=== PATIENT | male | born 1955 | race Caucasian/White ===

== ENCOUNTER 2019-05-19 12:57 | Day surgery (SDC) | payer BC, OTHER ==
[2019-05-17 11:33] VITALS: BMI 36.0
[~2019-05-19 12:57] MED LIST: SODIUM CHLORIDE 0.9% 1,000 ML IV SCH
[2019-05-19 13:33] VITALS: BP 123/75; RESP 18
[2019-05-19] MEDS ORDERED: IV FLUID CONTINUATION 500 ML IV ONE (13:34)
[2019-05-19] MEDS ORDERED: MIDAZOLAM 2 MG/2 ML VIAL IV ONE (14:51)
[2019-05-19] MEDS ORDERED: LIDOCAINE 1% INJ 10MG/ML (20 ML MDV) SQ ONE (14:52)
--- NOTE | 2019-05-19 15:19 | P.PCN ---
Preoperative Diagnosis: Loop monitor implant Primary physicians: Dr. Foster Bulk Station Agent: Dr. Linder Operators: Dr. Linder and Mary Ge PA-C Indication: Atrial fibrillation, NSVT, bradycardia Patient was brought to the EP lab in a fasting state. Written informed consent was obtained prior to the procedure. The left pectoral area was prepped and draped per protocol. Intravenous antibiotic was administered preoperatively. A subcutaneous Loop monitor was implanted successfully and the wound was closed per protocol. The device was programmed to detect significant mariluz- arrhythmic and tachy-arrhythmic events, per protocol. Device and programming details: Programmed A. fib protocol Patient underwent EP procedure under conscious sedation/moderate sedation under Dr. Linder's supervision, monitoring of the level of consciousness and physiologic parameters including but not limited to vital signs and oxygenation. Patient tolerated the procedure well without any acute complications. Start time: 1450 Stop time: 1510
--- NOTE | 2019-05-19 15:21 | P.PRLE ---
RE: Jaya Martinez Dear Imad Mr. Woods underwent implantation of loop monitor for management of atrial fibrillation and his palpitations. He has had short bursts of nonsustained ventricular tachycardia I will keep you posted on any new developments/plans Thank you for entrusting me with the care of the patient Warm regards Sincerely Ector Linder
== END 2019-05-19 15:52 | disposition home or self-care (01) ==
LOC: CATHEP 12:57
PROVIDERS: ATTEND Internal Medicine Clinical Cardiac Electrophysiology
DX: I48.0 Paroxysmal atrial fibrillation (principal); R00.1 Bradycardia, unspecified; R00.2 Palpitations; I47.1 Supraventricular tachycardia; I10 Essential (primary) hypertension; E78.5 Hyperlipidemia, unspecified; E66.9 Obesity, unspecified; Z68.36 Body mass index [BMI] 36.0-36.9, adult; G47.33 Obstructive sleep apnea (adult) (pediatric); Z99.89 Dependence on other enabling machines and devices; Z72.0 Tobacco use; Z82.49 Family history of ischemic heart disease and other diseases of the circulatory system; Z79.01 Long term (current) use of anticoagulants; Z79.82 Long term (current) use of aspirin; Z79.899 Other long term (current) drug therapy
CPT/HCPCS: 33285; C1764; J2250; J0690; J2001

== ENCOUNTER 2020-05-07 10:40 | Day surgery (SDC) | payer OTHER ==
[2020-05-02 13:59] VITALS: BMI 37.7
[~2020-05-07 10:40] MED LIST changes: +HYDROmorphone 0.5 MG/0.5 ML SYRINGE IVP PRN; +LACTATED RINGERS 1,000 ML IV SCH; +MIDAZOLAM 2 MG/2 ML VIAL IV PRN; +ONDANSETRON 4 MG/2 ML VIAL IVP ONE; -SODIUM CHLORIDE 0.9% 1,000 ML IV SCH
[2020-05-07] MEDS: SODIUM CHLORIDE 0.9% 1,000 ML IV SCH ×2 (11:34→19:58)
[2020-05-07 11:48] LABS: Basophils # (A) 0.1 k/uL (0-0.2); Basophils % (A) 1 %; Eosinophils # (A) 0.2 k/uL (0-0.7); Eosinophils % (A) 2 %; HCT 47.4 % (39.0-53.0); HGB 15.5 gm/dL (13.0-17.5); Lymphocytes # (A) 2.4 k/uL (1.0-4.8); Lymphocytes % (A) 40 %; MCH 30.2 pg (25.0-35.0); MCHC 32.7 g/dL (31.0-37.0); MCV 92.2 fL (80.0-100.0); Mean Platelet Volume 7.3; Monocytes # (A) 0.4 k/uL (0-1.0); Monocytes % (A) 7 %; Neutrophils # (A) 2.9 k/uL (1.3-7.7); Neutrophils % (A) 47 %; Platelet Count 287 k/uL (150-450); RBC 5.13 m/uL (4.30-5.90); RDW 12.7 % (11.5-15.5); WBC 6.1 k/uL (3.8-10.6)
[2020-05-07 11:57] LABS: African American GFR (CKD) >90 (>60 ml/min/1.73 sqM); Anion Gap 7 mmol/L; Blood Urea Nitrogen 20 mg/dL (9-20); Calcium 9.1 mg/dL (8.4-10.2); Carbon Dioxide 24 mmol/L (22-30); Chloride 108 mmol/L (98-107); Glucose 103 mg/dL (74-99); Non-African American GFR(CKD) >90 (>60 ml/min/1.73 sqM); Potassium 4.3 mmol/L (3.5-5.1); Sodium 139 mmol/L (137-145)
[2020-05-07] MEDS ORDERED: PROTAMINE SULFATE 10 MG/ML 5 ML VIAL IV ONE ×3 (14:04→16:37)
[2020-05-07] MEDS ORDERED: LIDOCAINE 1% INJ 10MG/ML (20 ML MDV) ONE ×2 (14:04→14:28)
[2020-05-07] MEDS ORDERED: fentaNYL (PF) 50 MCG/ML 2 ML AMP ONE (14:04)
[2020-05-07] MEDS ORDERED: PHENYLEPHRINE-0.9% NACL SYG 1 MG/10 ML SYRINGE ONE (14:04)
[2020-05-07] MEDS ORDERED: PROPOFOL 10 MG/ML 20 ML VIAL IV ONE (14:04)
[2020-05-07] MEDS ORDERED: HEPARIN SODIUM,PORCINE 10,000 UNIT/ML 1 ML VIAL ONE (14:04)
[2020-05-07] MEDS ORDERED: ISOPROTERENOL 250 MCG/1.25 ML SYR IV ONE (14:04)
[2020-05-07] MEDS ORDERED: SUCCINYLCHOLINE CHLORIDE 100 MG/5 ML SYR IV ONE (14:04)
[2020-05-07] MEDS ORDERED: MIDAZOLAM 2 MG/2 ML VIAL ONE (14:04)
[2020-05-07] MEDS ORDERED: LIDOCAINE 1% INJ 10MG/ML (20 ML MDV) SQ ONE (14:48)
[2020-05-07] MEDS ORDERED: HEPARIN SOD,PORK IN 0.45% NACL 25,000 UNIT in 0.45% NACL 1 250ML.BAG IV ONE (15:01)
[2020-05-07] MEDS ORDERED: ACETAMINOPHEN IV (For NPO) 1,000 MG in EMPTY BAG 1 BAG IVPB ONE (16:59)
[2020-05-07] MEDS ORDERED: ACETAMINOPHEN TAB 325 MG TAB PO PRN (16:59)
--- NOTE | 2020-05-07 17:32 | P.EPPROC ---
- EP Procedure Note Electrophysiology Procedure Note: Diagnosis Atrial fibrillation, symptomatic, refractory to therapy Paroxysmal with RVR Difficult rate control Result No left atrial appendage mass seen on intracardiac echo Successful pulmonary vein isolation of all veins using cryo-ablation Complete entrance block in all 4 veins confirmed No evidence for phrenic nerve injury Left bundle branch block aberrancy during atrial pacing Antegrade slow pathway conduction at 250 ms, no inducible AV liban reentry Esophageal deflection YES Electrical cardioversion with a synchronized shock across the chest NO Procedure details Patient was brought to the EP lab in a fasting state. Written informed consent was obtained prior to the procedure. Procedure performed under general anesthesia After initial muscle relaxant use, muscle relaxants were not given thereafter in order to assess phrenic nerve during procedure. Patient prepped and draped as per protocol Full cryo-set up with standard preparation of the cryoablation tools done. Femoral Venous access obtained on the right and left groins Venous and arterial Sheaths placed. Diagnostic catheters for the high right atrium, phrenic nerve stimulation and pacing, His bundle, RV and coronary sinus placed Intracardiac echo catheter placed. Long sheath placed in the right atrium Left and right transseptal catheterization performed under intracardiac echo guidance. Intravenous heparin with aCT above 300 Later, catheter positioning and balloon positioning in the left atrium, under intracardiac echo guidance Diagnostic EP study with Drug infusion with Isuprel Coronary sinus pacing and recording Baseline measurements Sinus cycle length 831 ms, ND interval 180 ms, QRS 103 ms and QT interval 395 ms AH 78 ms and HV 43 ms Atrial pacing performed from the high right atrium and the coronary sinus RV pacing VA Wenckebach block 590 ms Sinus recovery times at pacing cycle length of 600 ms was 1042 ms AV node Wenckebach block less than 200 ms on high-dose Isuprel Left bundle branch block aberrancy noted Slow pathway conduction on Isuprel at 250 ms Burst stimulation from the high right atrium from 400 ms down to 200 ms on high- dose Isuprel Burst stimulation from the coronary sinus from 370 ms down to 200 ms Transseptal catheterization performed RA pressure 13/5/9 LA pressure 18/5/11 Transseptal catheterization performed with standard sheath. The cryoablation sheath was then placed with an over the wire exchange without any acute complications. All 4 pulmonary veins were isolated in the following sequence: Left superior followed by left inferior followed by right superior followed by right inferior The cryo-ablation balloon was placed at the os of each vein 1.5 mL of IV dye was injected to confirm an occluded vein Goal during cryoablation was to achieve complete occlusion of the pulmonary vein, achieve -30 degrees C at 30 seconds and achieve -40 degrees C at 60 seconds and a time to effect of less than 60-90 seconds, . If not the balloon was repositioned to obtain this result After completion of Cryoblation with durations from 180-240 seconds, entrance block was confirmed with the Attain circular catheter in a roving fashion around the antrum of the pulmonary veins Phrenic nerve pacing was performed from the SVC, right innominate vein area and diaphragm voltage was monitored. Diaphragmatic contractions were also monitored manually for strength of contraction. Parameter goals for each cryo freeze Complete occlusion of the appropriate vein -30 degrees C by 30 seconds -40 degrees C by 60 seconds Minimum between minus 40-55 degrees C Thaw time greater than 10 seconds Balloon visualized by intracardiac echo The esophagus was intubated. Esophageal Temperature monitoring with a CIRCA catheter formed. Esophageal deflection for hypothermia of the esophagus below 30 degrees C Left superior pulmonary vein Complete isolation, entrance block Left inferior pulmonary vein Complete isolation, entrance block Right superior pulmonary vein, during phrenic nerve pacing Complete isolation, entrance block Right inferior pulmonary vein, during phrenic nerve pacing Complete isolation, entrance block At the end of the procedure the Achieve catheter was once again used to check for entrance block Phrenic nerve stimulation was performed to confirm diaphragmatic stimulation the end of the procedure Cine fluoroscopy was performed at the very end of the procedure to confirm movement of both diaphragms with inspiration and expiration At the end of the procedure the patient was extubated Heparin was reversed Venous sheaths were removed and hemostasis assured Procedures performed (PVI - CRYO Ablation) Diagnostic EP study CS pacing and recording Left and right transseptal catheterization Catheter the mapping of the tachycardia (NOT 3D mapping) Intracardiac echocardiography Pulmonary vein isolation with transseptal and comprehensive EPS, 38941 Drug Infusion +[id number]
[2020-05-07] MEDS: HYDROcodone/APAP 5-325MG 1 EACH TAB PO PRN ×2 (18:35→22:40)
[2020-05-07] MEDS ORDERED: HYDROmorphone 0.5 MG/0.5 ML SYRINGE IVP PRN (19:04)
[2020-05-07] MEDS: ASPIRIN 81 MG PO SCH (19:57)
[2020-05-07] MEDS: METOPROLOL TARTRATE 25 MG TAB PO SCH (19:57)
[2020-05-07] MEDS: APIXABAN 5 MG TAB PO SCH (19:58)
[2020-05-07] MEDS ORDERED: ATORVASTATIN 20 MG TAB PO SCH (21:00)
[2020-05-07] MEDS ORDERED: lisinopriL 20 MG TAB PO SCH (21:00)
[2020-05-08] MEDS: HYDROcodone/APAP 5-325MG 1 EACH TAB PO PRN (09:26)
[2020-05-08] MEDS: ASPIRIN 81 MG PO SCH (09:47)
[2020-05-08] MEDS: METOPROLOL TARTRATE 25 MG TAB PO SCH (09:47)
[2020-05-08] MEDS: APIXABAN 5 MG TAB PO SCH (09:47)
--- NOTE | 2020-05-08 11:21 | P.DS ---
Providers Attending physician: Ector Linder Primary care physician: [facility] Course: Patient is doing well. He denies any chest discomfort. Very mild sore throat no dizziness lightheadedness. History is back was hurting the today he feels a lot better There is no shortness of breath he is not dizzy or lightheaded and rhythm is normal The groin has healed well. Once of healed well no tenderness no swelling sutures were removed On examination blood pressure 138/82 mmHg pulse rate in the 70s afebrile 98.6F Breath sounds are clear no rhonchi no crackles Normal heart sounds normal S1 normal S2 no murmurs or gallops no rub Extended is warm no edema No swelling in either groin no tenderness Impression Paroxysmal atrial fibrillation RVR Successful cryoablation of the pulmonary veins No inducible atrial fibrillation thereafter despite high-dose Isuprel and for stimulation from multiple sites in the atria and coronary sinus Hypertension Dyslipidemia Suggest Continue medications for hypertension Continue dyslipidemia management Continue ELIQUIS Reduce metoprolol to 25 mg twice daily Follow-up in the office in 1-2 weeks Plan - Discharge Summary Discharge Rx Participant: No New Discharge Prescriptions: New Metoprolol Tartrate [Lopressor] 25 mg PO BID #180 tablet Continue ALPRAZolam [Xanax] 0.25 mg PO BID PRN PRN Reason: Anxiety Apixaban [Eliquis] 5 mg PO BID Simvastatin 40 mg PO HS Benazepril HCl 40 mg PO HS Changed Aspirin [Adult Low Dose Aspirin EC] 81 mg PO DAILY #0 Discontinued Metoprolol Tartrate 25 mg PO QID Discharge Medication List ALPRAZolam [Xanax] 0.25 mg PO BID PRN 05/17/19 [History] Apixaban [Eliquis] 5 mg PO BID 05/17/19 [History] Benazepril HCl 40 mg PO HS 05/17/19 [History] Simvastatin 40 mg PO HS 05/17/19 [History] Metoprolol Tartrate [Lopressor] 25 mg PO BID #180 tablet 05/07/20 [Rx] Aspirin [Adult Low Dose Aspirin EC] 81 mg PO DAILY #0 05/08/20 [Rx] Follow up Appointment(s)/Referral(s): Ector Linder MD [STAFF PHYSICIAN] - 05/15/20 10:45 am Patient Instructions/Handouts: Cardiac Ablation (DC) Activity/Diet/Wound Care/Special Instructions: Post EP study - Ablation instructions 1. Keep access sites dry for 2 days. 2. No heavy lifting or straining for 2 days. 3. Avoid bending the hips repeatedly for 2 days. 4. You may go up and down stairs slowly Call if the following is noted 1. Bleeding, increasing swelling or pain at the access sites. 2. Increasing chest discomfort, especially upon taking a deep breath. 3. Increasing shortness of breath, at rest or with exertion. 4. Undue cough / phlegm 5. Difficulty or pain while swallowing. 6. Pain or change in color in the extremities. 7. Fever, chills, rigors. 8. Increasing headache or neurologic symptoms. 9. Dizziness, fainting, palpitations Reduce metoprolol to 25 mg twice daily Continue ELIQUIS and other cardiac medications Follow-up with Dr. Linder in 2 weeks Discharge Disposition: HOME SELF-CARE
[2020-05-08 11:45] VITALS: BP 124/75; PULSE 66; RESP 20; TEMP 98.3
--- NOTE | 2020-05-08 14:14 | P.CONS ---
History of Present Illness - Reason for Consult Consult date: 05/08/20 Medical management - History of Present Illness HISTORY OF PRESENT ILLNESS This is a 65-year-old male patient of Dr. Blanco with past medical history of atrial fibrillation on long-term anticoagulation with eliquis, hypertension, hyperlipidemia, obstructive sleep apnea, remote history of tobacco use. Patient has been brought in the hospital in the care of Dr. Linder for electrocardioversion for atrial fibrillation symptomatic and refractory to therapy. Patient just procedure was successful and he has had no postop complications. Patient denies having any palpitations, chest pain, lightheadedness or dizziness. Patient is scheduled for discharge home today. REVIEW OF SYSTEMS Constitutional: No fever, no chills, no night sweats. No weight change. No weakness, fatigue or lethargy. No daytime sleepiness. EENT: No headache. No blurred vision or double vision, no loss of vision. No loss of Hearing, no ringing in the ears, no dizziness. No nasal drainage or congestion. No epistaxis. No sore throat. Lungs: No shortness of breath, cough, no sputum production. No wheezing. Cardiovascular: No chest pain, no lower extremity edema. No palpitations. No paroxysmal nocturnal dyspnea. No orthopnea. No lightheadedness or dizziness. No syncopal episodes. Abdominal: No abdominal pain. No nausea, vomiting. No diarrhea. No constipation. No bloody or tarry stools.. No loss of appetite. Genitourinary: No dysuria, increased frequency, urgency. No urinary retention. Musculoskeletal: No myalgias. No muscle weakness, no gait dysfunction, no frequent falls. No back pain. No neck pain. Integumentary: No wounds, no lesions. No rash or pruritus. No unusual bruising. No change in hair or nails. Neurologic: No aphasia. No facial droop. No change in mentation. No head injury. No headache. No paralysis. No paresthesia. Psychiatric: No depression. No anxiety. No mood swings. Endocrine: No abnormal blood sugars. No weight change. No excessive sweating or thirst. No cold intolerance. PHYSICAL EXAMINATION Gen: This is [ ] HEENT: Head is atraumatic, normocephalic. Pupils equal, round. Sclerae is anicte dandy. NECK: Supple. No JVD. No lymphadenopathy. No thyromegaly. LUNGS: Clear to auscultation. No wheezes or rhonchi. No intercostal retractions. HEART: Regular rate and rhythm. No murmur. ABDOMEN: Soft. Bowel sounds are present. No masses. No tenderness. EXTREMITIES: No pedal edema. No calf tenderness. NEUROLOGICAL: Patient is awake, alert and oriented x3. Cranial nerves 2 through 12 are grossly intact. ASSESSMENT AND PLAN 1. Chronic atrial fibrillation, symptomatic and refractory to therapy. Patient is status post electrocardioversion. Continue Lopressor 25 mg twice daily, eliquis 5 mg twice daily. 2. Hypertension. Continue benazepril 40 mg at bedtime, Lopressor 25 mg twice daily. 3. Hyperlipidemia. Continue simvastatin 40 mg at bedtime. 4. Obstructive sleep apnea. 5. Remote history of tobacco use. Discharge plan: home. Impression and plan of care have been directed as dictated by the signing physician. Tootie Arias nurse practitioner acting as scribe for signing physician. Past Medical History Past Medical History: Atrial Fibrillation, Hyperlipidemia, Hypertension, Sleep Apnea/CPAP/BIPAP Additional Past Medical History / Comment(s): see Dr Linder H&P History of Any Multi-Drug Resistant Organisms: None Reported Past Surgical History: Hernia Repair, Orthopedic Surgery Additional Past Surgical History / Comment(s): rt ankle, benign cyst rt index finger Past Anesthesia/Blood Transfusion Reactions: No Reported Reaction Additional Past Anesthesia/Blood Transfusion Reaction / Comm: states "very anxious" prior to procedures Smoking Status: Former smoker Medications and Allergies Home Medications Medication Instructions Recorded Confirmed Type ALPRAZolam [Xanax] 0.25 mg PO BID PRN 05/17/19 05/07/20 History Apixaban [Eliquis] 5 mg PO BID 05/17/19 05/07/20 History Benazepril HCl 40 mg PO HS 05/17/19 05/07/20 History Simvastatin 40 mg PO HS 05/17/19 05/07/20 History Metoprolol Tartrate [Lopressor] 25 mg PO BID #180 tablet 05/07/20 Rx Aspirin [Adult Low Dose Aspirin EC] 81 mg PO DAILY #0 05/08/20 05/07/20 Rx Allergies Allergy/AdvReac Type Severity Reaction Status Date / Time hair dye Allergy Swelling Uncoded 05/07/20 11:04 Physical Exam Vitals: Vital Signs Temp Pulse Pulse Pulse Resp BP BP 05/08/20 07:45 98.6 F 72 18 138/82 05/08/20 04:00 98.7 F 68 91 16 123/69 05/08/20 00:00 97.8 F 91 18 112/75 05/07/20 20:44 89 18 121/78 05/07/20 20:00 16 05/07/20 19:44 85 16 129/82 05/07/20 18:44 98.2 F 80 16 129/83 05/07/20 18:14 97.7 F 84 16 128/77 05/07/20 17:55 86 18 140/78 05/07/20 17:40 86 18 129/75 05/07/20 17:25 97 F L 91 16 118/73 05/07/20 11:33 98.1 F 68 18 141/72 Pulse Ox 05/08/20 07:45 95 05/08/20 04:00 97 05/08/20 00:00 93 L 05/07/20 20:44 05/07/20 20:00 05/07/20 19:44 94 L 05/07/20 18:44 94 L 05/07/20 18:14 96 05/07/20 17:55 96 05/07/20 17:40 99 05/07/20 17:25 96 05/07/20 11:33 96 Intake and Output 05/07/20 05/08/20 05/08/20 22:59 06:59 14:59 Intake Total 922 Output Total 320 Balance 922 -320 Intake: IV 82 Invasive Line 1 20 Invasive Line 2 20 Oral 840 Output: Urine 320 Other: Voiding Method Urinal # Voids 1 Weight 109.316 kg 105.6 kg Results CBC & Chem 7: 05/07/20 11:05 05/07/20 11:05 Labs: Abnormal Lab Results - Last 24 Hours (Table) 05/07/20 Range/Units 11:05 Chloride 108 H (98-107) mmol/L Glucose 103 H (74-99) mg/dL
== END 2020-05-08 12:53 | disposition home or self-care (01) ==
LOC: CATHEP 10:40 → 3SCARD 16:43 → CATHEP 05-08 12:53
PROVIDERS: ATTEND Internal Medicine Clinical Cardiac Electrophysiology
DX: I48.0 Paroxysmal atrial fibrillation (principal); I44.7 Left bundle-branch block, unspecified; I49.5 Sick sinus syndrome; I11.9 Hypertensive heart disease without heart failure; E78.5 Hyperlipidemia, unspecified; G47.33 Obstructive sleep apnea (adult) (pediatric); J02.9 Acute pharyngitis, unspecified; Z79.899 Other long term (current) drug therapy; Z79.82 Long term (current) use of aspirin; Z79.01 Long term (current) use of anticoagulants; Z99.89 Dependence on other enabling machines and devices; Z87.891 Personal history of nicotine dependence; Z87.19 Personal history of other diseases of the digestive system; Z98.890 Other specified postprocedural states; Z87.2 Personal history of diseases of the skin and subcutaneous tissue; Z87.898 Personal history of other specified conditions; Z91.09 Other allergy status, other than to drugs and biological substances; Z82.49 Family history of ischemic heart disease and other diseases of the circulatory system
CPT/HCPCS: 85347; 93623; 93662; 93609; 93656; 80048; 85025; C1769 ×4; C1894 ×2; C1893; C1733; C1766; C1730; J2250; J2720; J1644 ×2; J2001; J3010; J0131; J2370; J0330; J2704; J1170

== ENCOUNTER 2023-01-08 10:24 | Day surgery (SDC) | payer MEDICARE, OTHER ==
[2023-01-06 11:25] VITALS: BMI 37.3
[~2023-01-08 10:24] MED LIST changes: -HYDROmorphone 0.5 MG/0.5 ML SYRINGE IVP PRN; -LACTATED RINGERS 1,000 ML IV SCH; -MIDAZOLAM 2 MG/2 ML VIAL IV PRN; -ONDANSETRON 4 MG/2 ML VIAL IVP ONE; +SODIUM CHLORIDE 0.9% 1,000 ML IV SCH
[2023-01-08] MEDS ORDERED: SODIUM CHLORIDE 0.9% 500 ML 500 ML IV ONE (10:49)
[2023-01-08 10:58] VITALS: RESP 16; TEMP 98.1
[2023-01-08] MEDS ORDERED: LIDOCAINE 1% INJ 10MG/ML (20 ML MDV) ONE (11:33)
[2023-01-08] MEDS ORDERED: LIDOCAINE 1% INJ 10MG/ML (20 ML MDV) SQ ONE (11:51)
[2023-01-08] MEDS ORDERED: MIDAZOLAM 2 MG/2 ML VIAL IV ONE (11:51)
[2023-01-08] MEDS ORDERED: fentaNYL (PF) 50 MCG/ML 2 ML AMP ONE (11:57)
[2023-01-08] MEDS ORDERED: fentaNYL (PF) 50 MCG/ML 2 ML AMP IV ONE (11:58)
[2023-01-08 13:15] VITALS: BP 138/69; PULSE 69
--- NOTE | 2023-01-08 17:45 | P.EPPROC ---
- EP Procedure Note Electrophysiology Procedure Note: Procedure: Loop explant under sedation and local anesthesia. Diagnosis: Loop monitor at [facility] Patient was brought to the EP lab in a fasting state. Written informed consent was obtained prior to the procedure. The subcutaneous device was successfully explanted under local anesthesia. Preoperative antibiotics were administered. The wound was closed in layers and dressed per protocol. Result: Successful loop monitor explantation. Patient underwent EP procedure under conscious sedation/moderate sedation, monitoring of the level of consciousness and physiologic parameters including but not limited to vital signs and oxygenation. Patient tolerated the procedure well without any acute complications. Start time: 1150 Stop time: 1200
== END 2023-01-08 13:10 | disposition home or self-care (01) ==
LOC: CATHEP 10:24
PROVIDERS: ATTEND Internal Medicine Clinical Cardiac Electrophysiology
DX: T82.118A Breakdown (mechanical) of other cardiac electronic device, initial encounter (principal); I48.0 Paroxysmal atrial fibrillation; I10 Essential (primary) hypertension; E66.9 Obesity, unspecified; E78.5 Hyperlipidemia, unspecified; Z82.49 Family history of ischemic heart disease and other diseases of the circulatory system; F17.210 Nicotine dependence, cigarettes, uncomplicated; Z68.1 Body mass index [BMI] 19.9 or less, adult; Z79.01 Long term (current) use of anticoagulants; Z79.899 Other long term (current) drug therapy
CPT/HCPCS: 33286; J2250; J0690; J2001; J3010

== ENCOUNTER → 2023-11-25 | Outpatient (CLI) | payer MEDICARE ==
[2023-11-25 12:27] LABS: African American GFR (CKD) >90 (>60 ml/min/1.73 sqM); Blood Urea Nitrogen 13 mg/dL (9-20); Non-African American GFR(CKD) >90 (>60 ml/min/1.73 sqM)
--- NOTE | 2023-11-25 14:39 | CT ---
EXAMINATION TYPE: CT abdomen pelvis w con DATE OF EXAM: 11/25/2023 COMPARISON: None HISTORY: Umbilical hernia without obstruction or gangrene. CT DLP: 1566 mGycm CONTRAST: CT scan of the abdomen and pelvis is performed with Oral Contrast and with IV Contrast, patient injec jaime with 100 mL of Isovue 300. FINDINGS: LUNG BASES-: No visible nodule. No infiltrate. LIVER/GB: Noncalcified cholelithiasis. No space occupying hepatic lesion. Biliary tree is of normal c aliber. PANCREAS: No inflammation. No distinct mass. SPLEEN: No splenic enlargement. No lesion seen. ADRENALS: No nodule. No thickening. KIDNEYS/BLADDER: No hydronephrosis. No nephrolithiasis. No distinct renal mass. Urinary bladder g rossly unremarkable. BOWEL: Normal appendix. Normal bowel caliber. No inflammation. GENITAL ORGANS: Mildly enlarged prostate gland. LYMPH NODES: No greater than 1cm abdominal or pelvic lymph nodes are appreciated. AORTA: No significant abnormality. OSSEOUS STRUCTURES: No significant abnormality is seen. OTHER: Small umbilical hernia which contains a short segment of small bowel without obstruction. IMPRESSION: 1. Small umbilical hernia which contains a short segment of small bowel without obstruction. 2. Noncalcified cholelithiasis. 3. Prostate gland enlargement.
== END | disposition home or self-care (01) ==
LOC: RADCTMAIN 11:14
PROVIDERS: ATTEND Surgery
DX: K80.20 Calculus of gallbladder without cholecystitis without obstruction (principal); K42.9 Umbilical hernia without obstruction or gangrene; N40.0 Benign prostatic hyperplasia without lower urinary tract symptoms
CPT/HCPCS: 82565; 84520; 74177; 36415; Q9967

== ENCOUNTER 2023-12-11 11:24 | Inpatient (IN) | payer MEDICARE ==
[2023-12-11] MEDS: ACETAMINOPHEN TAB 500 MG TAB PO STA (12:03)
[2023-12-11] MEDS: DEXAMETHASONE SOD PHOSPHATE 4 MG/ML 1 ML VIAL IV ONE (12:04)
[2023-12-11] MEDS: ONDANSETRON 4 MG/2 ML VIAL IVP ONE (12:04)
[2023-12-11] MEDS: LACTATED RINGERS 1,000 ML IV SCH (12:08)
[2023-12-11] MEDS: LACTATED RINGERS 1,000 ML IV ONE (12:08)
[2023-12-11] MEDS: MIDAZOLAM 2 MG/2 ML VIAL IVP ONE (12:13)
[2023-12-11] MEDS: fentaNYL (PF) 50 MCG/ML 2 ML AMP IVP ONE (12:13)
[2023-12-11] MEDS: HEPARIN SODIUM,PORCINE 5,000 UNIT/ML 1 ML VIAL SQ STA (12:13)
[2023-12-11] MEDS ORDERED: SUCCINYLCHOLINE CHLORIDE 200 MG/10 ML VIAL IV ONE (12:30)
[2023-12-11] MEDS ORDERED: MIDAZOLAM 2 MG/2 ML VIAL ONE (12:30)
[2023-12-11] MEDS ORDERED: ROCURONIUM 10 MG/ML (5 ML VIAL) IV ONE (12:30)
[2023-12-11] MEDS ORDERED: ROPIVACAINE 5 MG/ML 30 ML VIAL ONE (12:30)
[2023-12-11] MEDS ORDERED: HYDROmorphone (PF) 1 MG/ML ONE (12:30)
[2023-12-11] MEDS ORDERED: NEOSTIGMINE 1 MG/ML 10 ML VIAL ONE (12:30)
[2023-12-11] MEDS ORDERED: hydrALAZINE HCL 20 MG/ML 1 ML VIAL ONE (12:30)
[2023-12-11] MEDS ORDERED: GLYCOPYRROLATE 0.2 MG/ML 2 ML VIAL ONE (12:30)
[2023-12-11] MEDS ORDERED: PROPOFOL 10 MG/ML 20 ML VIAL IV ONE (12:30)
[2023-12-11] MEDS ORDERED: fentaNYL (PF) 50 MCG/ML 2 ML AMP ONE (12:30)
[2023-12-11] MEDS ORDERED: SODIUM CHLORIDE 0.9% (PF) 10 ML VIAL ONE (12:30)
[2023-12-11] MEDS ORDERED: LIDOCAINE 1% INJ 10MG/ML (20 ML MDV) ONE (12:30)
[2023-12-11] MEDS: metroNIDAZOLE-NS PMX 500 MG in SALINE 1 100ML.BAG IVPB PRN (12:47)
--- NOTE | 2023-12-11 12:49 | P.ANPRN ---
Procedure Note - Anesthesia - Nerve Block Performed Bilateral Rectus Abdominis Single Time Out Performed: Yes (1212) Date of Procedure: 12/11/23 Procedure Start Time: 12:13 Procedure Stop Time: 12:18 Location of Patient: PreOp Indication: Acute Post-Operative Pain, Requested by Surgeon Specifically requested for management of pain by DrEvie: Rafiq Sparks Sedation Type: Sedate with meaningful contact maintained Preparation: Sterile Prep Position: Supine Catheter: None Needle Types: Pajunk Needle Gauge: 21 (x2) Ultrasound used to visualize needle placement: Yes Ultrasound used to observe medication spread: Yes Injectate: 0.5% Ropivacaine (see comment for volume) (20cc+10cc nacl pf each side) Blood Aspirated: No Pain Paresthesia on Injection Noted: No Resistance on Injection: Normal Image Stored and Saved: Yes Events: Uneventful and Well Tolerated
[2023-12-11] MEDS ORDERED: traMADol 50 MG TAB PO PRN (13:59)
[2023-12-11] MEDS ORDERED: ACETAMINOPHEN TAB 325 MG TAB PO PRN (13:59)
--- NOTE | 2023-12-11 14:03 | P.OP ---
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 Abdomen prepped and draped sterilely. Elliptical incision made encompassing the umbilical region. Dissection down through the subcutaneous tissues took place using electrocautery. The patient had a very firm indurated area centrally at the base of the umbilicus consistent with the mesh plug that was previously placed. There was a recurrent hernia superior to that. The omentum was adhered to the subcutaneous tissues. After mobilizing the omentum it was able to be reduced. I was then able to visualize the abdominal cavity. The patient had a loop of small bowel that was densely adherent to the base of the umbilicus and the suspected mesh. Circumferentially the fascia was divided using electrocautery so that we now had the umbilicus, mesh plug, and loop of small bowel all mobilized. I then divided the bowel proximal and distal to the fistula site using a linear 75 stapler. The mesentery of the small bowel was divided using 2-0 silk ties. The specimen was passed off. A [id number] anastomosis then took place. The antimesenteric portion of the staple line was removed and the 75 linear stapler was used along the antimesenteric border. The defect was then closed transversely using a TX 60 device. 3-0 GI silk Lembert sutures were then used. 3-0 GI silk crotch stitch was also placed. The abdomen was irrigated. No bleeding was seen. The fascial opening was then repaired/reapproximated in a vertical fashion using several short running #1 Vicryl sutures. The subcutaneous tissues were closed using 2-0 Vicryl sutures and the skin using eldon. Sterile dressings were then applied. DISPOSITION: Stable to recovery room
[2023-12-11] MEDS: HYDROmorphone 0.5 MG/0.5 ML SYRINGE IVP PRN (14:04)
[2023-12-11] MEDS: ONDANSETRON 4 MG/2 ML VIAL IVP PRN (15:06)
[2023-12-11] MEDS: HYDROcodone/APAP 5-325MG 1 EACH TAB PO PRN (16:54)
[2023-12-11] MEDS: ALVIMOPAN 12 MG CAPSULE PO SCH (16:55)
[2023-12-11] MEDS: HEPARIN SODIUM,PORCINE 5,000 UNIT/ML 1 ML VIAL SQ SCH (16:55)
[2023-12-11] MEDS: PIPERACILLIN-TAZOBACTAM 3.375 GM in SODIUM CHLORIDE 0.9% 100 ML IVPB SCH (17:07)
[2023-12-11 18:24] LABS: Basophils % (A) 0 %; Eosinophils % (A) 0 %; HCT 45.4 % (39.0-53.0); Lymphocytes # (A) 0.7 k/uL (1.0-4.8); Lymphocytes % (A) 6 %; MCH 29.7 pg (25.0-35.0); MCHC 30.9 g/dL (31.0-37.0); MCV 96.2 fL (80.0-100.0); Mean Platelet Volume 7.9; Monocytes # (A) 0.2 k/uL (0-1.0); Monocytes % (A) 2 %; Neutrophils # (A) 10.2 k/uL (1.3-7.7); Neutrophils % (A) 92 %; Platelet Count 225 k/uL (150-450); RBC 4.72 m/uL (4.30-5.90); RDW 13.6 % (11.5-15.5); WBC 11.2 k/uL (3.8-10.6)
[2023-12-11 18:29] LABS: African American GFR (CKD) >90 (>60 ml/min/1.73 sqM); Anion Gap 6 mmol/L; Blood Urea Nitrogen 14 mg/dL (9-20); Calcium 8.5 mg/dL (8.4-10.2); Carbon Dioxide 26 mmol/L (22-30); Chloride 106 mmol/L (98-107); Glucose 115 mg/dL (74-99); Non-African American GFR(CKD) >90 (>60 ml/min/1.73 sqM); Potassium 4.5 mmol/L (3.5-5.1); Sodium 138 mmol/L (137-145)
[2023-12-11] MEDS: HYDROmorphone 1 MG/ML 1 ML SYRINGE IVP PRN (18:35)
[2023-12-11] MEDS: FAMOTIDINE 20 MG/2 ML VIAL IV SCH (20:34)
[2023-12-11] MEDS: D5-0.45% NACL WITH KCL 20MEQ/L 1,000 ML IV SCH (20:47)
[2023-12-12] MEDS: ALPRAZolam 0.25 MG TAB PO PRN (01:39)
[2023-12-12] MEDS: METOCLOPRAMIDE 5 MG/ML 2 ML VIAL IVP PRN (01:43)
--- NOTE | 2023-12-12 11:13 | P.PN ---
Subjective Progress Note Date: 12/12/23 NAEON. No N/V. No F/C. States abdominal pain is well controlled on current regimen. Ambulatory and voiding. Endorses small amount of flatus no BM. Objective - Vital Signs Vital signs: Vital Signs Temp 98.6 F 12/12/23 07:50 Pulse 61 12/12/23 07:50 Resp 18 12/12/23 07:50 BP 123/65 12/12/23 07:50 Pulse Ox 93 L 12/12/23 07:50 FiO2 Intake & Output 12/11/23 12/12/23 12/12/23 18:59 06:59 18:59 Intake Total 1150 540 Output Total 25 1500 400 Balance 1125 -960 -400 Weight 97.7 kg Intake: IV 1150 Oral 540 Output: Urine 1500 400 Estimated Blood Loss 25 Other: # Voids 1 - Exam Gen: AxO, NAD Pulm; non-labored respirations Abd: soft, non-tender, moderately distended. Incision: C/D/I no erythema or fluctuence appreciated Extrem: no edema seen - Labs CBC & Chem 7: 12/11/23 17:56 12/11/23 17:56 Labs: Abnormal Lab Results - Last 24 Hours (Table) 12/11/23 12/11/23 Range/Units 17:56 17:56 WBC 11.2 H (3.8-10.6) k/uL MCHC 30.9 L (31.0-37.0) g/dL Neutrophils # 10.2 H (1.3-7.7) k/uL Lymphocytes # 0.7 L (1.0-4.8) k/uL Glucose 115 H (74-99) mg/dL Assessment and Plan Assessment: Patient is a 68M who is s/p umbilical hernia repair with small bowel resection for EC fistula Plan: -CLD as tolerated -IVF hydration -PRN pain and nausea control -DVT/GI PPx -Encouarge ambulation -Await return of bowel function Brandt Noel MD General Surgery
--- NOTE | 2023-12-12 13:27 | P.CONS ---
History of Present Illness - Reason for Consult Consult date: 12/12/23 Medical management - History of Present Illness History of present illness; patient is a 68-year-old gentleman with past medical history significant for hypertension, hyperlipidemia, atrial fibrillation who came to the hospital for elective umbilical hernia repair. Patient had hernia repair done in 2012 in [place]. Patient had noted over the last 2 to 3 weeks at a reddish area in the lower part umbilicus and was draining. Patient has been using ointments at home to the reddish area..Patient had CT abdominal pelvis done which showed recurrent hernia containing a loop of small bowel, gallstones and prostate enlargement. Patient was seen by surgery outpatient and recommended surgical repair. Patient underwent Open repair recurrent incisional hernia with excision enterocutaneous fistula/small bowel resection. Postoperatively internal medicine team were consulted for medical management REVIEW OF SYSTEMS: CONSTITUTIONAL: No fever, no malaise, no fatigue. HEENT: No recent visual problems or hearing problems. Denied any sore throat. CARDIOVASCULAR: No chest pain, orthopnea, PND, no palpitations, no syncope. PULMONARY: No shortness of breath, no cough, no hemoptysis. GASTROINTESTINAL: No diarrhea, no nausea, no vomiting, abdominal pain at site of surgery NEUROLOGICAL: No headaches, no weakness, no numbness. HEMATOLOGICAL: Denies any bleeding or petechiae. GENITOURINARY: Denies any burning micturition, frequency, or urgency. MUSCULOSKELETAL/RHEUMATOLOGICAL: Denies any joint pain, swelling, or any muscle pain. ENDOCRINE: Denies any polyuria or polydipsia. The rest of the 14-point review of systems is negative. PHYSICAL EXAMINATION: GENERAL: The patient is alert and oriented x3, not in any acute distress. Well developed, well nourished. HEENT: Pupils are round and equally reacting to light. EOMI. No scleral icterus. No conjunctival pallor. Normocephalic, atraumatic. No pharyngeal erythema. No thyromegaly. CARDIOVASCULAR: S1 and S2 present. No murmurs, rubs, or gallops. PULMONARY: Chest is clear to auscultation, no wheezing or crackles. ABDOMEN: Distended, tenderness present, surgical incision seen MUSCULOSKELETAL: No joint swelling or deformity. EXTREMITIES: No cyanosis, clubbing, or pedal edema. NEUROLOGICAL: Gross neurological examination did not reveal any focal deficits. SKIN: No rashes. Assessment and plan s/p umbilical hernia repair with small bowel resection for EC fistula Hypertension Hyperlipidemia history of atrial fibrillation Monitor vital signs Monitor CBC Monitor CMP Continue pain management Continue antiemetics continue IV fluids Advance diet per surgery Resume Lopressor, hold HCTZ and benazepril for now Resume Crestor Resume anticoagulation once okay with general surgery Labs and medication were reviewed.. Continue same treatment. Continue with symptomatic treatment. Resume home medication. Monitor labs and vitals. DVT and GI prophylaxis. Further recommendations as per clinical course of the patient Dictation was produced using [employer] dictation software. please excuse any grammatical, word or spelling errors. Past Medical History Past Medical History: Atrial Fibrillation, Hyperlipidemia, Hypertension, Sleep Apnea/CPAP/BIPAP Additional Past Medical History / Comment(s): see Dr Linder H&P, USES CPAP History of Any Multi-Drug Resistant Organisms: None Reported Past Surgical History: Cardiac Ablation, Hernia Repair, Orthopedic Surgery Additional Past Surgical History / Comment(s): rt ankle, benign cyst rt index finger, LOOP RECORDER IMPLANTED, and removed COLONOSCOPY, Past Anesthesia/Blood Transfusion Reactions: No Reported Reaction Additional Past Anesthesia/Blood Transfusion Reaction / Comm: states "very anxious" prior to procedures Past Psychological History: Anxiety Smoking Status: Former smoker Past Alcohol Use History: Rare Additional Past Alcohol Use History / Comment(s): quit smoking approx , smoked 1 and 1/2ppd Past Drug Use History: None Reported - Past Family History Mother Family Medical History: Cancer Additional Family Medical History / Comment(s): breast Brother(s) Family Medical History: Cancer Additional Family Medical History / Comment(s): skin Medications and Allergies Home Medications Medication Instructions Recorded Confirmed Type ALPRAZolam [Xanax] 0.25 mg PO BID PRN 05/17/19 12/09/23 History Benazepril HCl 40 mg PO HS 05/17/19 12/09/23 History Metoprolol Tartrate [Lopressor] 25 mg PO BID #180 tablet 05/07/20 12/09/23 Rx Acetaminophen-Codeine 300-30mg 1 tab PO Q6H PRN 01/06/23 12/09/23 History [Tylenol w/codeine #3] Mv-Min/Folic/K1/Lycopen/Lutein 1 each PO DAILY 01/06/23 12/09/23 History [Centrum Silver Men Tablet] Rivaroxaban [Xarelto] 20 mg PO HS 01/06/23 12/09/23 History Rosuvastatin [Crestor] 20 mg PO HS 01/06/23 12/09/23 History hydroCHLOROthiazide 25 mg PO DAILY 01/06/23 12/09/23 History Allergies Allergy/AdvReac Type Severity Reaction Status Date / Time hair dye Allergy Swelling Uncoded 12/11/23 11:42 Physical Exam Vitals: Vital Signs Temp Pulse Resp BP Pulse Ox 12/12/23 07:50 98.6 F 61 18 123/65 93 L 12/12/23 02:00 72 17 138/69 94 L 12/11/23 17:48 96 120/66 93 L 12/11/23 17:18 59 L 117/73 92 L 12/11/23 17:03 65 118/64 91 L 12/11/23 16:48 48 L 121/64 93 L 12/11/23 16:33 53 L 123/72 94 L 12/11/23 16:15 97.9 F 93 18 117/71 94 L 12/11/23 15:30 81 14 111/58 93 L 12/11/23 15:10 61 14 120/60 94 L 12/11/23 14:55 73 14 114/56 12/11/23 14:40 72 14 109/56 95 12/11/23 14:25 81 16 110/56 96 12/11/23 14:10 70 14 113/62 96 12/11/23 13:55 97.3 F L 88 18 115/66 95 Intake and Output 12/11/23 12/12/23 12/12/23 22:59 06:59 14:59 Intake Total 540 Output Total 1500 400 Balance 540 -1500 -400 Intake: Oral 540 Output: Urine 1500 400 Other: # Voids 1 Weight 97.7 kg Results CBC & Chem 7: 12/11/23 17:56 12/11/23 17:56 Labs: Abnormal Lab Results - Last 24 Hours (Table) 12/11/23 12/11/23 Range/Units 17:56 17:56 WBC 11.2 H (3.8-10.6) k/uL MCHC 30.9 L (31.0-37.0) g/dL Neutrophils # 10.2 H (1.3-7.7) k/uL Lymphocytes # 0.7 L (1.0-4.8) k/uL Glucose 115 H (74-99) mg/dL
[2023-12-12] MEDS: ATORVASTATIN 40 MG TAB PO SCH (20:13)
[2023-12-12] MEDS: METOPROLOL TARTRATE 25 MG TAB PO SCH (20:13)
[2023-12-13] MEDS: hydroCHLOROthiazide 25 MG TAB PO SCH (12:08)
--- NOTE | 2023-12-13 12:55 | P.PN ---
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 Patient is doing well. He has no real complaints. On exam vital signs appear stable. Abdomen soft. Incisions clean dry tach. Patient will be reassessed by Dr. Chamberlain tomorrow. We despite discharged home tomorrow. Objective - Vital Signs Vital signs: Vital Signs Temp 98.0 F 12/13/23 07:38 Pulse 53 L 12/13/23 07:38 Resp 17 12/13/23 07:38 BP 149/79 12/13/23 07:38 Pulse Ox 95 12/13/23 07:38 FiO2 Intake & Output 12/12/23 12/13/23 12/13/23 18:59 06:59 18:59 Output Total 2400 Balance -2400 Output: Urine 2400 Other: # Voids 2 5 - Labs CBC & Chem 7: 12/11/23 17:56 12/11/23 17:56
--- NOTE | 2023-12-13 13:50 | P.PN ---
Subjective Progress Note Date: 12/13/23 patient is a 68-year-old gentleman with past medical history significant for hypertension, hyperlipidemia, atrial fibrillation who came to the hospital for elective umbilical hernia repair. Patient had hernia repair done in 2012 in [place]. Patient had noted over the last 2 to 3 weeks at a reddish area in the lower part umbilicus and was draining. Patient has been using ointments at home to the reddish area..Patient had CT abdominal pelvis done which showed recurrent hernia containing a loop of small bowel, gallstones and prostate enlargement. Patient was seen by surgery outpatient and recommended surgical repair. Patient underwent Open repair recurrent incisional hernia with excision enterocutaneous fistula/small bowel resection. Postoperatively internal medicine team were consulted for medical management 12/12. Patient seen and examined. Patient is not passing any gas, no bowel movement yet. Currently on clear liquid diet. Denies any nausea or vomiting REVIEW OF SYSTEMS: CONSTITUTIONAL: No fever, no malaise,. CARDIOVASCULAR: No chest pain, no palpitations, no syncope. PULMONARY: No shortness of breath, no cough, GASTROINTESTINAL: As mentioned above NEUROLOGICAL: No headaches, no weakness, PHYSICAL EXAMINATION: GENERAL: The patient is alert and oriented x3, not in any acute distress. Well developed, well nourished. HEENT: Pupils are round and equally reacting to light. EOMI. No scleral icterus. No conjunctival pallor. Normocephalic, atraumatic. No pharyngeal erythema. No thyromegaly. CARDIOVASCULAR: S1 and S2 present. No murmurs, rubs, or gallops. PULMONARY: Chest is clear to auscultation, no wheezing or crackles. ABDOMEN: Distended, tenderness present, surgical incision seen, bowel sounds audible MUSCULOSKELETAL: No joint swelling or deformity. EXTREMITIES: No cyanosis, clubbing, or pedal edema. NEUROLOGICAL: Gross neurological examination did not reveal any focal deficits. SKIN: No rashes. Assessment and plan s/p umbilical hernia repair with small bowel resection for EC fistula Hypertension Hyperlipidemia history of atrial fibrillation Monitor vital signs Monitor CBC Monitor CMP Continue pain management Continue antiemetics continue IV fluids Continue IV Zosyn Advance diet per surgery Continue Lopressor, resume HCTZ and benazepril Continue Crestor Resume anticoagulation once okay with general surgery Labs and medication were reviewed.. Continue same treatment. Continue with symptomatic treatment. Resume home medication. Monitor labs and vitals. DVT and GI prophylaxis. Further recommendations as per clinical course of the patient Dictation was produced using [employer] dictation software. please excuse any grammatical, word or spelling errors. Objective - Vital Signs Vital signs: Vital Signs Temp 98.0 F 12/13/23 07:38 Pulse 53 L 12/13/23 07:38 Resp 17 12/13/23 07:38 BP 149/79 12/13/23 07:38 Pulse Ox 95 12/13/23 07:38 FiO2 Intake & Output 12/12/23 12/13/23 12/13/23 18:59 06:59 18:59 Output Total 2400 Balance -2400 Output: Urine 2400 Other: # Voids 2 5 - Labs CBC & Chem 7: 12/11/23 17:56 12/11/23 17:56
[2023-12-13] MEDS: lisinopriL 20 MG TAB PO SCH (20:36)
[2023-12-14] MEDS: RIVAROXABAN 20 MG TAB PO SCH (16:59)
--- NOTE | 2023-12-14 19:12 | P.PN ---
Subjective Progress Note Date: 12/14/23 Principal diagnosis: Enterocutaneous fistula Patient doing better today. Tolerating diet. No nausea or vomiting. Feels somewhat bloated. Had a bowel movement earlier today. Pain is well-controlled. Objective - Vital Signs Vital signs: Vital Signs Temp 97.7 F 12/14/23 13:30 Pulse 69 12/14/23 13:30 Resp 18 12/14/23 13:30 BP 121/77 12/14/23 13:30 Pulse Ox 94 L 12/14/23 13:30 FiO2 Intake & Output 12/14/23 12/14/23 12/15/23 06:59 18:59 06:59 Other: # Voids 2 4 # Bowel Movements 1 - Exam Abdomen: Soft, mild distention, minimal tenderness incision clean and dry - Labs CBC & Chem 7: 12/11/23 17:56 12/11/23 17:56 Assessment and Plan (1) Enterocutaneous fistula Narrative/Plan: Patient doing well today. Continue advancing diet. Ambulate. Anticipate discharge tomorrow. Current Visit: Yes Status: Acute Code(s): K63.2 - FISTULA OF INTESTINE SNOMED Code(s): 806470767
--- NOTE | 2023-12-14 20:40 | P.PN ---
Subjective Progress Note Date: 12/14/23 HISTORY OF PRESENT ILLNESS: 68-year-old one of my office patient with past medical history of hypertension, hyperlipidemia, atrial fibrillation who apparently hospitalized on December 11, 2023 for elective umbilical hernia repair as a revision apparently his original hernia repair was done and 2013 in [place] and over the last 2 to 3 weeks has been having redness irritation discomfort and drainage patient was using antibiotic ointment. Patient had CAT scan of the abdomen showed recurrent hernia with containing loop of small bowel also had finding of gallstone and an enlarged prostate. Patient was seen by surgery as an outpatient and plan to have elective surgery. He underwent open repair for recurrent incisional hernia and finding consistent with anterior cutaneous fistula with small bowel resection. Patient was admitted to the hospital after surgery and seen by our preoperative service. Has been doing slightly better at this point all his home meds were resumed his continue hydration and pain management and resume anticoagulation as before. He is sitting on side of bed today eating clear liquid to full liquid, apparently is passing gas but no bowel movement yet. Still have a binder on his stomach with incision looks clean. REVIEW OF SYSTEMS: CONSTITUTIONAL: Well-developed no acute respiratory distress. EYES: No icterus sclerae, no conjunctivitis. EARS, NOSE, MOUTH, THROAT, and FACE: No sore throat, lymphadenopathy, carotid bruits or deformity. RESPIRATORY: No SOB cough or wheezes. CARDIOVASCULAR: No chest pain or angina positive A-fib. GASTROINTESTINAL: Post open umbilical hernia repair with enterocutaneous fistula and small bowel resection. GENITOURINARY: Negative for Hematuria or UTI, no kidney stones. INTEGUMENT/BREAST: Negative for any muscular injury with mild osteoarthritis.. HEMATOLOGIC/LYMPHATIC: Negative for bleed or purpura. MUSCULOSKELTAL: Negative for Myalgia or arthralgia. NEURLOGICAL: No LOC, Sz or syncope, blurred vision dizziness or abnormality.. BEHAVIORAL/PSYCH: Negative. ENDOCRINE: Negative. PHYSICAL EXAMINATION: General Appearance: Alert, cooperative, no distress, appears stated age. Neck HEENT: Supple, no lymphadenopathy, no thyroid enlargement, no carotid bruits. Lungs: Clear to auscultation without crackles or wheezes no rhonchi, no deformity. Chest Wall: Chest wall normal expansion with deep inspiration no tenderness and no deformity was found on exam, no costochondral pain or discomfort. Heart: Irregular rate and rhythm, S1, S2 normal, no murmur, rub or gallop. Back: Symmetric, no curvature, ROM normal, no CVA tenderness. Abdomen: Incision looks fine with no bleeding or hematoma slight irritation around it only. Extremities: Extremities normal, atraumatic, no cyanosis or edema. Pulses: 2+ and symmetric. Skin: Skin color, texture, tugor normal, no rashes or lesions. Neurologic: Alert oriented x3 cranial nerves II through XII intact, no motor deficit, no abnormal balance or gait. ASSESSMENT AND PLAN: _Status post umbilical hernia open repair with small bowel resection and AV fistula repair: Continue postsurgical care, continue hydration, titration on diet, continue pain management. Doing well continue to watch for any bowel movement and titrate diet and probably prepare for home in the next day or 2. _A-fib with RVR: Resume anticoagulation was on Xarelto supposed to be started today has been on heparin subcutaneous for postsurgical prophylaxis. He is on metoprolol with pulse rates under control. Will be off heparin by evening. _Hypertension: Remain on lisinopril 40 mg a day metoprolol titrate 25 mg twice a day. _Hyperlipidemia: Resume Lipitor as before. _Pain control management: Continue tramadol and hydrocodone still have Dilaudid on as-needed basis only. _Mild hyperglycemia: Continue diet control no medication. _ OAS: Supposed to have his CPAP on regularly. GI prophylaxis: Remain on Pepcid 20 mg a day. CODE STATUS: Full code. Discharge planning: Advance diet minutes. Discharge tomorrow. Objective - Vital Signs Vital signs: Vital Signs Temp 98.0 F 12/14/23 02:52 Pulse 61 12/14/23 02:52 Resp 15 12/14/23 02:52 BP 114/69 12/14/23 02:52 Pulse Ox 98 12/14/23 02:52 FiO2 Intake & Output 12/13/23 12/13/23 12/14/23 06:59 18:59 06:59 Other: # Voids 5 5 # Bowel Movements 1 - Labs CBC & Chem 7: 12/11/23 17:56 12/11/23 17:56
[2023-12-15 07:36] VITALS: BP 116/71; PULSE 69; RESP 16; TEMP 98.3
--- NOTE | 2023-12-15 15:38 | P.DS ---
Providers Date of admission: 12/11/23 11:24 Expected date of discharge: 12/15/23 Attending physician: Rafiq Sparks Consults: 12/11/23 13:57 Consult Physician Routine Consulting Provider: Jaya Foster Consult Reason/Comments: Medical management Do you want consulting provider notified?: Yes Primary care physician: Jaya Foster - Discharge Diagnosis(es) (1) Enterocutaneous fistula 68-year-old male admitted last Thursday for enterocutaneous fistula. Underwent excision umbilicus, repair recurrent hernia, small bowel resection. Doing well over the weekend. Diet gradually advanced. Today tolerating diet well. Was discharged home earlier this morning. Follow-up in the office 1 week. Status: Acute Plan - Discharge Summary Discharge Rx Participant: Yes New Discharge Prescriptions: No Action ALPRAZolam [Xanax] 0.25 mg PO BID PRN PRN Reason: Anxiety Benazepril HCl 40 mg PO HS Metoprolol Tartrate [Lopressor] 25 mg PO BID #180 tablet Rosuvastatin [Crestor] 20 mg PO HS Rivaroxaban [Xarelto] 20 mg PO HS Acetaminophen-Codeine 300-30mg [Tylenol w/codeine #3] 1 tab PO Q6H PRN PRN Reason: Pain Mv-Min/Folic/K1/Lycopen/Lutein [Centrum Silver Men Tablet] 1 each PO DAILY hydroCHLOROthiazide 25 mg PO DAILY Discharge Medication List ALPRAZolam [Xanax] 0.25 mg PO BID PRN 05/17/19 [History] Benazepril HCl 40 mg PO HS 05/17/19 [History] Metoprolol Tartrate [Lopressor] 25 mg PO BID #180 tablet 05/07/20 [Rx] Acetaminophen-Codeine 300-30mg [Tylenol w/codeine #3] 1 tab PO Q6H PRN 01/06/23 [History] Mv-Min/Folic/K1/Lycopen/Lutein [Centrum Silver Men Tablet] 1 each PO DAILY 01/06/23 [History] Rivaroxaban [Xarelto] 20 mg PO HS 01/06/23 [History] Rosuvastatin [Crestor] 20 mg PO HS 01/06/23 [History] hydroCHLOROthiazide 25 mg PO DAILY 01/06/23 [History] Follow up Appointment(s)/Referral(s): Rafiq Sparks MD [Medical Doctor] - 12/30/23 3:50 pm Jaya Foster MD [Primary Care Provider] - 1-2 Days Activity/Diet/Wound Care/Special Instructions: May shower daily Dressing can remain intact while showering Change dressing every 3-4 days Use own Tylenol 3 as needed for pain Discharge Disposition: HOME SELF-CARE
--- NOTE | 2023-12-15 21:39 | P.PN ---
Subjective Progress Note Date: 12/15/23 HISTORY OF PRESENT ILLNESS: 68-year-old one of my office patient with past medical history of hypertension, hyperlipidemia, atrial fibrillation who apparently hospitalized on December 11, 2023 for elective umbilical hernia repair as a revision apparently his original hernia repair was done and 2013 in [place] and over the last 2 to 3 weeks has been having redness irritation discomfort and drainage patient was using antibiotic ointment. Patient had CAT scan of the abdomen showed recurrent hernia with containing loop of small bowel also had finding of gallstone and an enlarged prostate. Patient was seen by surgery as an outpatient and plan to have elective surgery. He underwent open repair for recurrent incisional hernia and finding consistent with anterior cutaneous fistula with small bowel resection. Patient was admitted to the hospital after surgery and seen by our preoperative service. Has been doing slightly better at this point all his home meds were resumed his continue hydration and pain management and resume anticoagulation as before. He is sitting on side of bed today eating clear liquid to full liquid, apparently is passing gas but no bowel movement yet. Still have a binder on his stomach with incision looks clean. 12/15/2023: He is doing very well today, had regular food today and up having bowel movement, pain is under well control not having any complication with infection, vital signs are good with back temperature 98.3 pulse of 69 blood pressure 116/71 pulse ox 93% on room air. Patient is moving around freely still have a binder on the stomach but feeling very well. His bowel movement was kind of soft stool with no blood or major mucus consistent with any complication. General surgery Dr. Acevedo is happy with his progress at this point the patient will be able to go home today. REVIEW OF SYSTEMS: CONSTITUTIONAL: Well-developed no acute respiratory distress. EYES: No icterus sclerae, no conjunctivitis. EARS, NOSE, MOUTH, THROAT, and FACE: No sore throat, lymphadenopathy, carotid bruits or deformity. RESPIRATORY: No SOB cough or wheezes. CARDIOVASCULAR: No chest pain or angina positive A-fib. GASTROINTESTINAL: Post open umbilical hernia repair with enterocutaneous fistula and small bowel resection. GENITOURINARY: Negative for Hematuria or UTI, no kidney stones. INTEGUMENT/BREAST: Negative for any muscular injury with mild osteoarthritis.. HEMATOLOGIC/LYMPHATIC: Negative for bleed or purpura. MUSCULOSKELTAL: Negative for Myalgia or arthralgia. NEURLOGICAL: No LOC, Sz or syncope, blurred vision dizziness or abnormality.. BEHAVIORAL/PSYCH: Negative. ENDOCRINE: Negative. PHYSICAL EXAMINATION: General Appearance: Alert, cooperative, no distress, appears stated age. Neck HEENT: Supple, no lymphadenopathy, no thyroid enlargement, no carotid bruits. Lungs: Clear to auscultation without crackles or wheezes no rhonchi, no deformity. Chest Wall: Chest wall normal expansion with deep inspiration no tenderness and no deformity was found on exam, no costochondral pain or discomfort. Heart: Irregular rate and rhythm, S1, S2 normal, no murmur, rub or gallop. Back: Symmetric, no curvature, ROM normal, no CVA tenderness. Abdomen: Incision looks fine with no bleeding or hematoma slight irritation around it only. Extremities: Extremities normal, atraumatic, no cyanosis or edema. Pulses: 2+ and symmetric. Skin: Skin color, texture, tugor normal, no rashes or lesions. Neurologic: Alert oriented x3 cranial nerves II through XII intact, no motor deficit, no abnormal balance or gait. ASSESSMENT AND PLAN: _Enterocutaneous fistula: Successful procedure with no complication had an excisional umbilicus with repair of recurrent hernia with small bowel resection has been recovering with no complication or infection. _Status post umbilical hernia open repair with small bowel resection and AV fistula repair: Continue postsurgical care, continue hydration, titration on diet, continue pain management. Doing well continue to watch for any bowel movement and titrate diet and probably prepare for home in the next day or 2. _A-fib with RVR: Pulse rate is well-controlled resume anticoagulation with X arelto as before. _Hypertension: Remain on lisinopril 40 mg a day metoprolol titrate 25 mg twice a day. Systolic blood pressure running around 130. _Hyperlipidemia: Resume rosuvastatin 20 mg at home. _Pain control management: Hardly require any pain management history using Tylenol 3 on as-needed basis. _Mild hyperglycemia: Continue diet control no medication. _ OAS: Supposed to have his CPAP on regularly. Discharge planning: Patient be discharged home today to follow-up in the office within 3 to 5 days. Objective - Vital Signs Vital signs: Vital Signs Temp 97.9 F 12/15/23 01:35 Pulse 67 12/15/23 01:35 Resp 17 12/15/23 01:35 BP 140/84 12/15/23 01:35 Pulse Ox 98 12/15/23 01:35 FiO2 Intake & Output 12/14/23 12/14/23 12/15/23 06:59 18:59 06:59 Other: # Voids 2 4 # Bowel Movements 1 - Labs CBC & Chem 7: 12/11/23 17:56 12/11/23 17:56
--- NOTE | 2023-12-18 11:50 | CDI ---
Documentation Clarification Form Date: 12/18/2023 11:27:45 AM From: Jane Barnett RN, CCDS Phone: [phone] Admit Date: 12/11/2023 11:24:00 AM Patient Name: Jaya Martinez Visit Number: [id number] Discharge Date: 12/15/2023 11:25:00 AM ATTENTION: The Clinical Documentation Specialists (CDI) and [facility] Coding Staff appreciate your assistance in clarifying documentation. Please respond to the clarification below the line at the bottom and electronically sign. The CDI & [facility] Coding staff will review the response and follow-up if needed. Please note: Queries are made part of the Legal Health Record. If you have any questions, please contact the author of this message via ITS. Dr. Jaya Foster Atrial Fibrillation is documented in the progress notes. Additional clarification regarding the type of atrial fibrillation is requested. History/Risk Factors: HTN, HLD, atrial fibrillation and repair of incarcerated umbilical hernia in 2012. Now with recurrent hernia containing a loop of small bowel. S/P open repair recurrent incisional hernia with excision enterocutaneous fistula/small bowel resection. Clinical Indicators: 12/13 IM: "A-fib with RVR: Resume anticoagulation, was on Xarelto. Supposed to be started today but has been on Heparin subcutaneous for postsurgical prophylaxis." 12/14 IM: "A-fib with RVR: Pulse rate is well-controlled, resume anticoagulation with Xarelto as before." 12/13 Heart: Irregular rate and rhythm. 12/10-12/14 HR: 49-97 12/10 Telemetry tracing: irregular rhythm Treatment: Xarelto 20mg on 12/13; Lopressor 25mg po BID 12/11-12/14; Heparin 5000 units Q8H 12/10-12/13 Please clarify the type of atrial fibrillation, if known: [ ] Chronic [ XX ] Permanent [ ] Paroxysmal [ ] Persistent [ ] Other, please specify [ ] Unable to determine MTDD
== END 2023-12-15 11:25 | disposition home or self-care (01) | DRG 330 ==
LOC: 2ORMAIN 11:24 → EDSTATUS 14:05 → 4SSUR 14:19
PROVIDERS: ADMIT Internal Medicine Geriatric Medicine; ATTEND Surgery
PROC: 0WQF0ZZ Repair Abdominal Wall, Open Approach (ICD-10-PCS; 2023-12-11)
PROC: 0WBF0ZZ Excision of Abdominal Wall, Open Approach (ICD-10-PCS; 2023-12-11)
PROC: 0DB80ZZ Excision of Small Intestine, Open Approach (ICD-10-PCS; principal; 2023-12-11 12:45)
DX: K63.2 Fistula of intestine (principal); I48.21 Permanent atrial fibrillation; E78.5 Hyperlipidemia, unspecified; I10 Essential (primary) hypertension; I48.91 Unspecified atrial fibrillation; K43.2 Incisional hernia without obstruction or gangrene; L98.8 Other specified disorders of the skin and subcutaneous tissue; K80.20 Calculus of gallbladder without cholecystitis without obstruction; N40.0 Benign prostatic hyperplasia without lower urinary tract symptoms; R73.9 Hyperglycemia, unspecified; Z79.01 Long term (current) use of anticoagulants; Z79.899 Other long term (current) drug therapy; Z87.891 Personal history of nicotine dependence; Z87.19 Personal history of other diseases of the digestive system
CPT/HCPCS: 64488; 80048; 85025; 88307; 94760

== ENCOUNTER → 2025-01-20 | Outpatient (CLI) | payer MEDICARE ==
--- NOTE | 2025-01-22 18:03 | PE ---
EXAMINATION TYPE: PET CT whole body DATE OF EXAM: 01/20/2025 CLINICAL INDICATION:Male, 69 years old with history of C90.00 MULTIPLE MYELOMA NOT HAVING ACHIEVED RE MISS; TECHNIQUE: Following the intravenous administration of 10.1 mCi of F-18 FDG, whole body images are performed from the skull base to the Feet. Images are reviewed on the computer in the coronal, axial , and sagittal planes. Reconstructed rotating images are created on independent workstation and revi ewed on the computer. A non-contrast CT is performed in conjunction with the PET scan. Glucose leve l 136 mg/dL CT DLP: 1734 mGycm, Automated exposure control for dose reduction was used. COMPARISON: CT CT 11/25/2023., PET/CT None, MRI: None FINDINGS: Mediastinal SUV mean is 2.1. Hepatic parenchyma SUV mean is 2.5. SKULL BASE AND NECK: CC musculoskeletal section. CHEST, MEDIASTINUM, AND HILAR REGION: No suspicious radiotracer activity. ABDOMEN AND PELVIS: No suspicious radiotracer activity. MUSCULOSKELETAL STRUCTURES: Suspicious uptake identified; examples include: * Uptake within the L1 vertebral body which is patchy max SUV 5.4 with destructive osseous lesion ne w from 11/25/2023 * Left skull base soft tissues just beneath the skull and max SUV 4.7 with destructive changes to th e C1 lateral process. * Scattered lucent lesions in the skull also present most pronounced right posterior skull max SUV 3 .5 with lucent lesion corresponding to this finding. * Destructive changes to left rib 3 posteriorly max SUV 2.9. * Right scapulae destructive osseous lesion max SUV 4.6. * Sacrum max SUV 5.6. * OTHER CT: Atherosclerosis of the arterial vasculature including the carotid bifurcations and intracra nial vasculature. Bilaterally aphakia. Mild thyromegaly. Moderate to severe coronary artery atheroscl erosis. Colonic diverticulosis. Prostatomegaly. IMPRESSION: Scattered masses with osseous destructive changes and low levels FDG activity concerning for active m alignancy. [facility], , 01/22/2025 6:01 PM
== END | disposition home or self-care (01) ==
LOC: RADPETMAIN 11:09
PROVIDERS: ATTEND Internal Medicine
DX: C90.00 Multiple myeloma not having achieved remission (principal)
CPT/HCPCS: 78815; A9552

== ENCOUNTER 2025-01-26 06:06 | Day surgery (SDC) | payer MEDICARE ==
[2025-01-24 15:09] VITALS: BMI 34.6
[2025-01-26] MEDS: LACTATED RINGERS 1,000 ML IV SCH (07:07)
[2025-01-26] MEDS ORDERED: PROPOFOL 10 MG/ML 20 ML VIAL IV ONE (07:11)
[2025-01-26] MEDS: IV FLUID CONTINUATION 1,000 ML IV ONE (07:11)
[2025-01-26] MEDS ORDERED: LIDOCAINE 1% INJ 10MG/ML (20 ML MDV) ONE (07:11)
[2025-01-26 07:17] VITALS: TEMP 97.4
[2025-01-26 07:41] VITALS: RESP 16
[2025-01-26 07:41] LABS: Glucose,Whole Blood 88 mg/dL (70-110)
[2025-01-26 08:11] LABS: HCT 39.0 % (39.6-50.0); HGB 12.9 g/dL (13.0-17.0); MCH 30.1 pg (27.0-32.0); MCHC 33.1 g/dL (32.0-37.0); MCV 91.1 fL (80.0-97.0); Platelet Count 272 10*3/uL (140-440); RBC 4.28 10*6/uL (4.40-5.60); RDW 14.3 % (11.5-14.5); WBC 7.49 10*3/uL (4.50-10.00)
--- NOTE | 2025-01-26 08:11 | OP ---
OPERATIVE REPORT DATE OF SERVICE : PROCEDURE PERFORMED: Bone marrow biopsy with general and local sedation. DETAILS OF PROCEDURE: After being placed in the left lateral decubitus position, general anesthesia was administered, the right posterior iliac spine followed by the right iliac crest was palpated. This area was sterilized with 3 swabs of Betadine and 3 swabs of alcohol, followed by placement of sterile drape. 10 mL of lidocaine was then applied to the periosteum and subcutaneous tissues. 0.3 cm incision was then made into the subcutaneous tissue followed by advancement of 4-inch Jamshidi needle through the periosteum, this was a bone marrow. Initial 2 passes did not provide sufficient aspirate material, 3rd pass with sufficient aspirate material with 17 mL of aspirate was obtained, 0.5 cm core sample was obtained. Additional core sample was not successful. He tolerated procedure well with less than 1 mL of blood loss. He returned to the postoperative area in stable condition. The samples will be sent for morphology, flow cytometry, FISH, and cytogenetics. PREOPERATIVE DIAGNOSIS: Multiple myeloma. POSTOPERATIVE DIAGNOSIS: Multiple myeloma. MMODL / IJN: [id number] /
[2025-01-26 08:17] VITALS: BP 110/63; PULSE 87
[2025-01-26 09:05] LABS: Anisocytosis (M) Present
== END 2025-01-26 08:34 | disposition home or self-care (01) ==
LOC: OR 06:06
PROVIDERS: ATTEND Internal Medicine
DX: C90.00 Multiple myeloma not having achieved remission (principal); E11.9 Type 2 diabetes mellitus without complications; E78.5 Hyperlipidemia, unspecified; I10 Essential (primary) hypertension; Z88.6 Allergy status to analgesic agent; Z79.84 Long term (current) use of oral hypoglycemic drugs; Z79.899 Other long term (current) drug therapy
CPT/HCPCS: 85025; 85045; 38222; J2003; J2704